=== PATIENT | male | born 1990 | race Caucasian/White ===

== ENCOUNTER 2024-11-24 13:49 | Emergency (ER) | payer BC ==
[~2024-11-24 13:49] MED LIST: Iopamidol-370 76% 500 ML MDV (1 ML CHARGE) ONE
[2024-11-24 16:23] LABS: #Basophils Less than 0.03 10x3/uL (0.0-0.2); %Basophils 0.2 % (0.0-1.0); %Eosinophils 0.8 % (0.0-10.0); %Lymphocytes 18.1 % (21.0-51.0); %Monocytes 7.7 % (0.0-10.0); %Neutrophils 72.9 % (42.0-75.0); Hematocrit 43.2 % (42.0-52.0); Hemoglobin 14.7 g/dL (14.0-18.0); Mean Corpuscular Hemoglobin 32.9 pg (27.0-31.0); Mean Corpuscular Volume 96.6 fL (78.0-98.0); Mean Platelet Volume 9.3 fL (7.4-10.4); Platelet Count 298 10x3/uL (130-400); RBC Distribution Width 11.7 % (11.5-14.5); Red Blood Cell (RBC) Count 4.47 mill/uL (4.70-6.10)
[2024-11-24 16:53] LABS: ALT (SGPT) 10 U/L (Less than 45); AST (SGOT) 24 U/L (11-34); Albumin 3.8 g/dL (3.1-4.5); Alkaline Phosphatase 46 U/L (40-110); Anion Gap 12 mmol/L (10-20); BUN (Urea Nitrogen) 12 mg/dL (8.9-20.6); Bilirubin, Total 0.4 mg/dL (0.3-1.2); Calc. Creatinine Clearance 0 mL/min (70-130); Calcium 9.4 mg/dL (7.8-10.44); Carbon Dioxide 24 mmol/L (22-29); Chloride 107 mmol/L (98-107); Estimated GFR 124; Glucose 90 mg/dL (70-105); Potassium 4.3 mmol/L (3.5-5.1); Protein, Total 7.8 g/dL (6.0-8.3); Sodium 139 mmol/L (136-145)
[2024-11-24] MEDS ORDERED: Morphine 4 MG/ML VIAL ONE (18:39)
[2024-11-24] MEDS ORDERED: metroNIDAZOLE 500 MG (100 mL) BAG ONE (18:39)
[2024-11-24] MEDS ORDERED: Piperacillin/Tazobactam 3.375 GM VIAL ONE (18:40)
[2024-11-24 19:29] LABS: Bacteria/HPF None Seen HPF (None Seen); Bilirubin Negative (Negative); Blood, Urine Negative (Negative); CAUTI Indications for Culture Dysuria,urgency,freq; Clarity Clear (Clear); Glucose, Urine (Dipstick) Normal (Negative); Ketone, Urine Negative (Negative); Leukocyte Negative Leu/uL (Negative); Nitrite Negative (Negative); Protein, Urine (Dipstick) Negative (Neg-Trace); RBC/HPF 0-3 HPF (0-3); Squamous Epithelial None Seen HPF (0-3); Urobilinogen Normal mg/dL (Less than 2); WBC/HPF 0-3 HPF (0-3); pH, Urine 7.5 (5.0-9.0)
[2024-11-24 19:32] LABS: Urine Culture Reflex No No
== END 2024-11-24 20:16 | disposition home or self-care (01) ==
LOC: ERS 13:49
DX: L03.314 Cellulitis of groin (principal)
CPT/HCPCS: 36415; 75635; 76857; 76870; 80053; 81001; 85025; 86141; 87040; 87070; 87077; 87086; 87205; 93976; J2270; J2543